=== PATIENT | male | born 1990 | race African-American/Black ===

== ENCOUNTER 2017-03-06 19:13 | Emergency (ER) | payer MEDICAID ==
[~2017-03-06] VITALS: Ht 182.9 cm; Wt 72.4 kg
[2017-03-06 23:27] VITALS: BP 106/65
[2017-03-06] MEDS ORDERED: IBUPROFEN 600MG TABLET PO ONE (23:30)
== END 2017-03-06 23:30 | disposition home or self-care (01) ==
LOC: ER 21:50
DX: M54.5 Low back pain (principal); F17.200 Nicotine dependence, unspecified, uncomplicated; Z88.0 Allergy status to penicillin
CPT/HCPCS: 99283

== ENCOUNTER 2017-05-03 09:58 | Emergency (ER) | payer MEDICAID ==
[~2017-05-03] VITALS: Ht 182.9 cm; Wt 73.0 kg
[2017-05-03 10:01] VITALS: BP 107/60
[2017-05-03] MEDS ORDERED: KETOROLAC 60MG/2ML VIAL IM ONE (11:00)
[2017-05-03] MEDS ORDERED: LIDOCAINE HCL 1% 20ML VIAL (Pyxis) INJ MC ONE (11:00)
[2017-05-03] MEDS ORDERED: BACITRACIN ZINC OINT UDPKT TOP ONE (11:00)
[2017-05-03] MEDS ORDERED: TETANUS, DIPHTHERIA, PERTUSSIS VAC/PF 0.5ML (>7YR OLD) IM ONE (11:00)
[2017-05-03] MEDS ORDERED: IBUPROFEN 600MG TABLET PO ONE (11:30)
== END 2017-05-03 12:14 | disposition left against medical advice (07) ==
LOC: ER 11:26
DX: M54.5 Low back pain (principal); S61.217A Laceration without foreign body of left little finger without damage to nail, initial encounter; W11.XXXA Fall on and from ladder, initial encounter; Y93.89 Activity, other specified; Y92.098 Other place in other non-institutional residence as the place of occurrence of the external cause; Z23 Encounter for immunization; Z88.0 Allergy status to penicillin
CPT/HCPCS: 90715; 99282; J3490; Z7610; J1885

== ENCOUNTER 2018-11-29 21:41 | Emergency (ER) | payer MEDICAID ==
[~2018-11-29] VITALS: Ht 182.9 cm; Wt 66.0 kg
[2018-11-29] MEDS ORDERED: DIPHENHYDRAMINE 25MG CAPSULE PO ONE (23:15)
[2018-11-29] MEDS ORDERED: METOCLOPRAMIDE HCL 10MG TABLET PO ONE (23:15)
[2018-11-29] MEDS ORDERED: KETOROLAC 15MG/ML VIAL IM ONE (23:15)
[2018-11-30 00:05] VITALS: BP 126/88
== END 2018-11-30 00:05 | disposition home or self-care (01) ==
LOC: ER 21:41
DX: G43.909 Migraine, unspecified, not intractable, without status migrainosus (principal); Z88.0 Allergy status to penicillin
CPT/HCPCS: 96372; 99283; J1885; J8597; Q0163